=== PATIENT | female | born 1945 | race Caucasian/White ===

== ENCOUNTER 2017-01-16 08:16 | Emergency (ER) | payer OTHER, MEDICARE ==
[2017-01-16] MEDS ORDERED: Sodium Chloride 0.9% 10 ML Syringe FLUSH PRN (08:34)
[2017-01-16] MEDS ORDERED: Aspirin 81 MG Tab.Chew PO ONE (08:35)
[2017-01-16] MEDS ORDERED: Nitroglycerin 0.4 MG Tab.SL SL ONE ×2 (08:35→09:16)
--- NOTE | 2017-01-16 08:43 | EDM.PDOC ---
ED HISTORY OF PRESENT ILLNESS - General Chief Complaint: Chest Pain Stated Complaint: CHEST PAINS Time Seen by Provider: 01/16/17 08:26 Source of Information: Reports: Patient, Family, RN, RN notes reviewed History Limitations: Reports: No limitations - History of Present Illness INITIAL COMMENTS - FREE TEXT/NARRATIVE: Patient presents to the ED at [facility] with chest pain. Patient states the pain started around 6:30am. Patient states the pain feel like a pressure and is heavy. Patient has some mild SOB. No focal neurological deficits. Patient states she initially had back pain, but that has subsided. Patient states she does feel sick to her stomach. No diarrhea or vomiting. No cough. Symptom Onset Date: 01/16/17 Symptom Onset Time: 06:30 Timing/Duration: Reports: Constant Severity: mild Location, General: Reports: chest Quality: Reports: Ache, Pressure Improves with: Reports: None Worsens with: Reports: None Context, General: Denies: Activity, Exercise, Lifting, Sick contact, Trauma Associated Symptoms (General): Reports: chest pain, nausea/vomiting, shortness of breath. Denies: confusion, cough w sputum, headaches - Related Data Allergies/ADRs: Allergies Allergy/AdvReac Type Severity Reaction Status Date / Time No Known Drug Allergies Allergy Other Verified 05/17/15 16:36 lisinopril AdvReac Cough Verified 03/25/16 11:30 Home Meds: Home Meds ALPRAZolam [Xanax] 0.25 mg PO Q8HR PRN 10/04/13 [History] Cyanocobalamin (Vitamin B-12) [Cyanocobalamin Injection] 1,000 mcg IM ASDIRECTED 10/04/13 [History] Furosemide [Lasix] 20 mg PO DAILY PRN 10/04/13 [History] Isosorbide Mononitrate [Imdur] 60 mg PO DAILY 10/04/13 [History] Levothyroxine 125 mcg PO DAILY 10/04/13 [History] Losartan [Cozaar] 50 mg PO DAILY 10/04/13 [History] Metoprolol Tartrate 25 mg PO DAILY 10/04/13 [History] Nitroglycerin [Nitrostat] 0.4 mg SL Q5M PRN 10/04/13 [History] traZODone 50 mg PO BEDTIME PRN #30 tab 09/10/14 [Rx] Cholecalciferol (Vitamin D3) [Vitamin D3] 2,000 unit PO DAILY 12/05/14 [History] Omeprazole [Prilosec] 20 mg PO DAILY 12/05/14 [History] Ranolazine [Ranexa] 500 mg PO DAILY 12/05/14 [History] Teriparatide [Forteo] 20 mcg SUBCUT DAILY 12/05/14 [History] Aspirin 2 tab PO DAILY 05/17/15 [History] DULoxetine [Cymbalta] 20 mg PO DAILY 05/17/15 [History] Exenatide Microspheres [Bydureon] 2 mg SQ WEEKLY 05/17/15 [History] Gabapentin [Neurontin] 1 cap PO BID 05/17/15 [History] Hydrocodone/Acetaminophen [Hydrocodon-Acetaminophen 5-325] 1 - 2 tab PO Q4H PRN 05/17/15 [History] PARoxetine [Paxil] 20 mg PO DAILY 05/17/15 [History] Rosuvastatin [Crestor] 10 mg PO DAILY 05/17/15 [History] Sennosides/Docusate Sodium [Senna-Docusate Sodium] 1 each PO BID PRN 05/17/15 [ History] glipiZIDE [Glipizide ER] 5 mg PO DAILY 05/17/15 [History] Enoxaparin [Lovenox] 30 mg SUBCUT BID #5 05/21/15 [Rx] Ferrous Sulfate 1 tab 06/21/15 [History] Morphine [MS Contin] 15 mg PO Q12HR 06/21/15 [History] Past Medical History Cardiovascular History: Reports: CAD, Hypertension, CO, PTCA, Stents Other Cardiovascular History: LBBB Other Respiratory History: none Gastrointestinal History: Reports: Chronic constipation Musculoskeletal History: Reports: Osteoporosis Endocrine/Metabolic History: Reports: Diabetes, type II - Past Surgical History Cardiovascular Surgical History: Reports: Coronary artery bypass, Coronary artery stent GI Surgical History: Reports: Bariatric procedure Social & Family History - Family History Family Medical History: Noncontributory - Tobacco Use Smoking Status *Q: Former Smoker Tobacco Use Within Last Twelve Months: No Years of Tobacco use: 20 Used Tobacco, but Quit: Yes Month Tobacco Last Used: 25 years ago Second Hand Smoke Exposure: No - Alcohol Use Days Per Week of Alcohol Use: 0 - Recreational Drug Use Recreational Drug Use: No ED ROS GENERAL - Review of Systems Review Of Systems: See Below Constitutional: Denies: fever, chills, weakness Respiratory: Denies: Shortness of Breath, Cough Cardiovascular: Reports: Chest pain, Blood pressure problem, Dyspnea on exertion. Denies: Palpitations GI/Abdominal: Reports: Nausea. Denies: Abdominal pain, Diarrhea, Vomiting Skin: Reports: no symptoms Neurological: Denies: Dizziness, Headache, Numbness, Paresthesia, Tingling ED EXAM, GENERAL - Physical Exam Exam: See Below Exam Limited By: No limitations General Appearance: alert, no apparent distress Eye Exam: bilateral eye: EOMI, normal inspection, PERRL Head: atraumatic, normocephalic Neck: supple Respiratory/Chest: no respiratory distress, lungs clear, decreased breath sounds Cardiovascular: normal peripheral pulses, regular rate, rhythm, no edema Peripheral Pulses: 2+: radial (L), radial (R) GI/Abdominal: soft, non tender, abnormal bowel sounds: (hypoactive) Neurological: alert, oriented Skin Exam: Warm, Dry, Intact, Normal color, No rash EKG INTERPRETATION EKG Date: 01/16/17 Time: 08:28 Rhythm: NSR Rate (beats/min): 78 [place]: LAD-left axis deviation P-wave: present QRS: LBBB ST-T: normal QT: normal MT/PQ Interval: 0.16 Comparison: NA - no prior EKG EKG Interpretation Comments: 1. NSR 2. Possible Left Atrial Enlargement 3. Left [place] deviation 4. LBBB Course - Vital Signs Last Recorded V/S: Last Vital Signs Temp 37.2 C 01/16/17 08:20 Pulse 82 01/16/17 08:20 Resp 12 01/16/17 08:20 BP 173/90 H 01/16/17 09:25 Pulse Ox 97 01/16/17 08:20 - Orders/Labs/Meds Orders: Active Orders 24 hr Category Date Time Status EKG 12 Lead [EKG Documentation Completion] [RC] STAT Care 01/16/17 08:34 Active EKG 12 Lead [EKG Documentation Completion] [RC] STAT Care 01/16/17 09:17 Active Oxygen Therapy [RC] ASDIRECTED Care 01/16/17 08:36 Active Chest 2V [CR] Stat Exams 01/16/17 08:37 Taken CBC W/O DIFF,HEMOGRAM [HEME] Q3D Lab 01/17/17 07:00 Ordered CBC W/O DIFF,HEMOGRAM [HEME] Q3D Lab 01/20/17 07:00 Ordered CBC W/O DIFF,HEMOGRAM [HEME] Q3D Lab 01/23/17 07:00 Ordered CBC W/O DIFF,HEMOGRAM [HEME] Q3D Lab 01/26/17 07:00 Ordered CBC W/O DIFF,HEMOGRAM [HEME] Q3D Lab 01/29/17 07:00 Ordered CBC W/O DIFF,HEMOGRAM [HEME] Q3D Lab 02/01/17 07:00 Ordered CBC W/O DIFF,HEMOGRAM [HEME] Q3D Lab 02/04/17 07:00 Ordered UA W/MICROSCOPIC [URIN] Stat Lab 01/16/17 08:33 Uncollected Heparin Sodium/0.45% NaCl [Heparin 25,000 Units in 1/2 Med 01/16/17 10:30 Active NS 500 ML] 25,000 units in 500 ml IV TITRATE Sodium Chloride 0.9% [Normal Saline] 1,000 ml Med 01/16/17 08:45 Active IV ASDIRECTED Sodium Chloride 0.9% [Saline Flush] Med 01/16/17 08:34 Active 10 ml FLUSH ASDIRECTED PRN Peripheral IV Insertion Adult [OM.PC] Routine Oth 01/16/17 08:34 Ordered Medication Orders Sodium Chloride (Normal Saline) 1,000 mls @ 30 mls/hr IV ASDIRECTED ALLA Last Admin: 01/16/17 08:49 Dose: 30 mls/hr Heparin Sodium/Sodium Chloride (Heparin 25,000 Units In 1/2 Ns 500 Ml) 25,000 units in 500 mls @ 762.035 mls/hr IV TITRATE ALLA PRN Reason: 700 UNITS/KG/HR Sodium Chloride (Saline Flush) 10 ml FLUSH ASDIRECTED PRN PRN Reason: Keep Vein Open Labs: Laboratory Tests 01/16/17 01/16/17 Range/Units 08:55 08:55 WBC 6.1 (4.0-10.0) x10^3/uL RBC 4.22 (4.00-5.50) x10^6/uL Hgb 10.4 L (12.0-16.0) g/dL Hct 33.8 (33.0-47.0) % MCV 80.1 (78.0-93.0) fL MCH 24.6 L (26.0-32.0) pg MCHC 30.8 L (32.0-36.0) g/dL RDW Coeff of [place] 16.6 H (10.0-15.0) % Plt Count 328 (130-400) x10^3/uL Neut % (Auto) 58.8 (50.0-80.0) % Lymph % (Auto) 27.8 (25.0-50.0) % [place] % (Auto) 10.3 (2.0-11.0) % Eos % (Auto) 2.8 (0.0-4.0) % Baso % (Auto) 0.3 (0.2-1.2) % Sodium 141 (136-145) mmol/L Potassium 4.6 (3.5-5.1) mmol/L Chloride 105 (98-107) mmol/L Carbon Dioxide 30 (21-32) mmol/L BUN 10 (7-18) mg/dL Creatinine 0.8 (0.55-1.02) mg/dL Est Cr Clr Drug Dosing TNP Estimated GFR (MDRD) > 60 Glucose 209 H (74-106) mg/dL Calcium 8.0 L (8.5-10.1) mg/dL Corrected Calcium 8.80 (8.5-10.1) mg/dL Phosphorus 3.7 (2.6-4.7) mg/dL Magnesium 1.9 (1.8-2.4) mg/dL Total Bilirubin 0.4 (0.2-1.0) mg/dL AST 14 L (15-37) U/L ALT 15 (14-59) U/L Alkaline Phosphatase 121 H (46-116) U/L Creatine Kinase 60 (26-192) U/L Creatine Kinase Index 1.7 (0.0-4.0) % CK-MB (CK-2) 1.0 (0.0-3.6) ng/mL Troponin I < 0.017 (<=0.056) ng/mL Total Protein 6.1 L (6.4-8.2) g/dL Albumin 3.0 L (3.4-5.0) g/dL Globulin 3.1 Albumin/Globulin Ratio 0.97 Meds: Medications Generic Name Dose Route Start Last Admin Trade Name Freq PRN Reason Stop Dose Admin Sodium Chloride 1,000 mls @ 30 mls/hr 01/16/17 08:45 01/16/17 08:49 Normal Saline IV 30 mls/hr ASDIRECTED ALLA Administration Heparin Sodium/Sodium Chloride 25,000 units in 500 mls @ 762.035 mls/hr 10:30 Heparin 25,000 Units In 1/2 Ns 500 Ml IV TITRATE ALLA 700 UNITS/KG/HR Sodium Chloride 10 ml 01/16/17 08:34 Saline Flush FLUSH ASDIRECTED PRN Keep Vein Open Discontinued Medications Generic Name Dose Route Start Last Admin Trade Name Freq PRN Reason Stop Dose Admin Aspirin 324 mg 01/16/17 08:35 01/16/17 08:45 Aspirin PO 01/16/17 08:36 324 mg ONETIME ONE Administration Clopidogrel Bisulfate 300 mg 01/16/17 10:17 Plavix PO 01/16/17 10:18 ONETIME ONE Heparin Sodium (Porcine) 4,000 units 01/16/17 10:22 Heparin Sodium IVPUSH 01/16/17 10:23 .BOLUS ONE Nitroglycerin 0.4 mg 01/16/17 08:35 01/16/17 08:46 Nitrostat SL 01/16/17 08:36 0.4 mg ONETIME ONE Administration Nitroglycerin 0.4 mg 01/16/17 09:16 01/16/17 09:25 Nitrostat SL 01/16/17 09:17 0.4 mg ONETIME ONE Administration - Radiology Interpretation Free Text/Narrative:: Chest PA and Lateral: 1. No acute process - see scanned document - Re-Assessments/Exams Free Text/Narrative Re-Assessment/Exam: 01/16/17 09:20 Patient continues to have mild chest pain; will repeat EKG and Nitro SL Departure - Departure Time of Disposition: 10:27 Disposition: DC/Tfer to Acute Hospital 02 Reason for Transfer *Q: Primary PCI Indicated Condition: good Clinical Impression: Unstable angina Forms: Interfacility Transfer [facility] ED Communication - ED Communication Date/Time Date: 01/16/17 Time Called: 10:16 - Discussed Case With (1) Discussed Case With (1): Admitting Provider Person/s Notified (1): Jacki Lozada - Conversation Summary Admitting Provider Agreed to Patient's Admission: Yes Patient Aware of Amendments fo Care Plan: Yes Summary Comment: Patient will be transferred to [facility]. Accepting provider is Dr. Trevizo, Hospitalist. Report given. - Problem List Review Problem List Initiated/Reviewed/Updated: Yes - My Orders Last 24 Hours: My Active Orders 01/16/17 08:33 UA W/MICROSCOPIC [URIN] Stat 01/16/17 08:34 EKG 12 Lead [EKG Documentation Completion] [RC] STAT Sodium Chloride 0.9% [Saline Flush] 10 ml FLUSH ASDIRECTED PRN Peripheral IV Insertion Adult [OM.PC] Routine 01/16/17 08:36 Oxygen Therapy [RC] ASDIRECTED 01/16/17 08:37 Chest 2V [CR] Stat 01/16/17 08:45 Sodium Chloride 0.9% [Normal Saline] 1,000 ml IV ASDIRECTED 01/16/17 09:17 EKG 12 Lead [EKG Documentation Completion] [RC] STAT 01/16/17 10:30 Heparin Sodium/0.45% NaCl [Heparin 25,000 Units in 1/2 NS 500 ML] 25,000 units in 500 ml IV TITRATE 01/17/17 07:00 CBC W/O DIFF,HEMOGRAM [HEME] Q3D 01/20/17 07:00 CBC W/O DIFF,HEMOGRAM [HEME] Q3D 01/23/17 07:00 CBC W/O DIFF,HEMOGRAM [HEME] Q3D 01/26/17 07:00 CBC W/O DIFF,HEMOGRAM [HEME] Q3D 01/29/17 07:00 CBC W/O DIFF,HEMOGRAM [HEME] Q3D 02/01/17 07:00 CBC W/O DIFF,HEMOGRAM [HEME] Q3D 02/04/17 07:00 CBC W/O DIFF,HEMOGRAM [HEME] Q3D - Assessment/Plan Last 24 Hours: My Active Orders 01/16/17 08:33 UA W/MICROSCOPIC [URIN] Stat 01/16/17 08:34 EKG 12 Lead [EKG Documentation Completion] [RC] STAT Sodium Chloride 0.9% [Saline Flush] 10 ml FLUSH ASDIRECTED PRN Peripheral IV Insertion Adult [OM.PC] Routine 01/16/17 08:36 Oxygen Therapy [RC] ASDIRECTED 01/16/17 08:37 Chest 2V [CR] Stat 01/16/17 08:45 Sodium Chloride 0.9% [Normal Saline] 1,000 ml IV ASDIRECTED 01/16/17 09:17 EKG 12 Lead [EKG Documentation Completion] [RC] STAT 01/16/17 10:30 Heparin Sodium/0.45% NaCl [Heparin 25,000 Units in 1/2 NS 500 ML] 25,000 units in 500 ml IV TITRATE 01/17/17 07:00 CBC W/O DIFF,HEMOGRAM [HEME] Q3D 01/20/17 07:00 CBC W/O DIFF,HEMOGRAM [HEME] Q3D 01/23/17 07:00 CBC W/O DIFF,HEMOGRAM [HEME] Q3D 01/26/17 07:00 CBC W/O DIFF,HEMOGRAM [HEME] Q3D 01/29/17 07:00 CBC W/O DIFF,HEMOGRAM [HEME] Q3D 02/01/17 07:00 CBC W/O DIFF,HEMOGRAM [HEME] Q3D 02/04/17 07:00 CBC W/O DIFF,HEMOGRAM [HEME] Q3D
[2017-01-16] MEDS ORDERED: Sodium Chloride 0.9% 1,000 ML IV SCH (08:45)
[2017-01-16 09:44] LABS: CHLORIDE,CL 105 mmol/L (98-107); SODIUM,NA 141 mmol/L (136-145)
[2017-01-16] MEDS ORDERED: Clopidogrel 75 MG Tab PO ONE (10:17)
[2017-01-16] MEDS ORDERED: Heparin Sodium 5,000 Units/ML Vial IVPUSH ONE (10:22)
[2017-01-16] MEDS ORDERED: Heparin Sodium/0.45% NaCl 25,000 UNITS/500 ML BAG IV SCH (10:30)
[2017-01-16 10:54] VITALS: BP 171/84
== END 2017-01-16 11:05 | disposition short-term general hospital (02) ==
LOC: VM.ED 08:16
DX: I20.0 Unstable angina (principal); I10 Essential (primary) hypertension; I25.2 Old myocardial infarction; E11.9 Type 2 diabetes mellitus without complications; Z98.84 Bariatric surgery status; Z79.82 Long term (current) use of aspirin; Z79.899 Other long term (current) drug therapy; Z95.1 Presence of aortocoronary bypass graft; Z88.8 Allergy status to other drugs, medicaments and biological substances; Z87.891 Personal history of nicotine dependence
CPT/HCPCS: 36415; 71020; 80053; 82550; 82553; 83735; 84100; 84484; 85025; 93005; 96365; 99285; A9270; J1644; J7030

== ENCOUNTER 2019-06-29 06:05 | Day surgery (SDC) | payer MEDICARE, OTHER ==
[2019-06-29] MEDS ORDERED: Bupivacaine 0.25%/EPINEPHrine 1:200,000 30 ML SDV ONE (06:49)
[2019-06-29] MEDS ORDERED: Lactated Ringers 1,000 ML IV SCH (07:00)
[2019-06-29] MEDS ORDERED: Sodium Chloride 0.9% 10 ML Syringe FLUSH PRN (07:00)
[2019-06-29] MEDS ORDERED: Ketamine 200 MG/20 ML MDV ONE (07:23)
[2019-06-29] MEDS ORDERED: Propofol 200 MG/20 ML SDV ONE (07:24)
[2019-06-29] MEDS ORDERED: ceFAZolin 1 GM Vial ONE (07:36)
[2019-06-29] MEDS ORDERED: Bupivacaine 0.25%/EPINEPHrine 1:200,000 30 ML SDV INJECT ONE ×2 (07:57)
[2019-06-29] MEDS ORDERED: Bacitracin Oint 1 GM U/D Packet ONE (08:08)
[2019-06-29] MEDS ORDERED: Ondansetron 4 MG/2 ML SDV IVPUSH PRN (08:32)
[2019-06-29] MEDS ORDERED: Morphine 4 MG/ML Syringe IVPUSH PRN (08:33)
[2019-06-29] MEDS ORDERED: Acetaminophen/oxyCODONE 325-5 MG Tab PO PRN (08:34)
--- NOTE | 2019-06-29 08:42 | OR ---
PREOPERATIVE DIAGNOSIS: Problematic external hemorrhoids. POSTOPERATIVE DIAGNOSIS: Problematic external hemorrhoids. PROCEDURE PROPOSED AND PROCEDURE DONE: External hemorrhoidectomy x4. INDICATION: This is an elderly female who has been quite bothered with external hemorrhoids with cleaning and soreness, and she wanted something done and I felt that we could help her by surgically excising them. TECHNIQUE: The patient was brought to the operative suite, given MAC anesthesia with propofol and some ketamine and placed in the lithotomy position with the Ranjan stirrups. The perianal area was then sterilely prepped and draped. A perianal block was performed with 0.25% Marcaine with epinephrine. Inspection revealed basically an external hemorrhoid problem. She did not have any significant internal hemorrhoids. I, therefore, felt we could just elliptically excise the external hemorrhoids, and she basically had 4 of them, 2 on each side, and I ellipsed the minimal amount of tissue to get them removed. This was performed by using a 15 blade, followed by cautery to complete the excision. Hemostasis was obtained in the depths of each excision with further cautery and then it was closed with a running 4-0 Vicryl suture in each of the 4 areas. Digital exam revealed some very slight narrowing of the anal canal, but I could easily insert my finger and there was minimal blood loss. She tolerated the procedure well. All specimens were submitted for pathologic examination, and she was awakened and taken back to the recovery room in good condition. SCM: 06/29/2019 08:17:36 MODL: 06/29/2019 08:35:38 /[id number]
[2019-06-29 09:36] VITALS: BP 155/71; PULSE 61
== END 2019-06-29 10:35 | disposition home or self-care (01) ==
LOC: VM.SDS 06:05
PROVIDERS: ATTEND Surgery
DX: K64.4 Residual hemorrhoidal skin tags (principal); E11.9 Type 2 diabetes mellitus without complications; I10 Essential (primary) hypertension; I25.10 Atherosclerotic heart disease of native coronary artery without angina pectoris; E03.9 Hypothyroidism, unspecified; E78.5 Hyperlipidemia, unspecified; K21.9 Gastro-esophageal reflux disease without esophagitis; M81.0 Age-related osteoporosis without current pathological fracture; F41.9 Anxiety disorder, unspecified; F32.9 Major depressive disorder, single episode, unspecified; Z79.891 Long term (current) use of opiate analgesic; Z79.84 Long term (current) use of oral hypoglycemic drugs; Z79.82 Long term (current) use of aspirin; Z88.8 Allergy status to other drugs, medicaments and biological substances; Z87.891 Personal history of nicotine dependence
CPT/HCPCS: 46250; 82962; A9270; J0690; J2704; J7120; 00902